=== PATIENT | female | born 1930 | race Caucasian/White ===

== ENCOUNTER → 2017-02-05 | Outpatient (REF) | payer MEDICARE, OTHER | LOC: M SFHCCLAY 13:51 | PROVIDERS: ATTEND Family Medicine | DX: E11.9 Type 2 diabetes mellitus without complications (principal) | CPT/HCPCS: 83036; G0463 ==

== ENCOUNTER 2017-11-09 12:51 | Emergency (ER) | payer MEDICARE, OTHER ==
[~2017-11-09] VITALS: Ht 167.6 cm; Wt 70.9 kg
[2017-11-09] MEDS ORDERED: LISI-538 PO (13:09)
[2017-11-09] MEDS ORDERED: TRUL10IN SC (13:09)
[2017-11-09] MEDS ORDERED: GLIM1TAB PO (13:09)
[2017-11-09] MEDS ORDERED: FLUV1TAB3 PO (13:09)
[2017-11-09] MEDS ORDERED: AMLO10TA2 PO (13:09)
[2017-11-09] MEDS ORDERED: VENL75CA47 PO (13:09)
[2017-11-09] MEDS ORDERED: CALC600T60 PO (13:09)
[2017-11-09] MEDS ORDERED: RANI150T PO (13:09)
--- NOTE | 2017-11-09 14:39 | REP ---
REASON: Pain status post fall last Saturday. FINDINGS: Three views of the right shoulder were performed. The acromioclavicular and glenohumeral relationships are within normal limits. There is no acute fracture or destructive osseous lesion. Signed by Neftaly Mukherjee DO 11/09/2017 02:59 P
--- NOTE | 2017-11-09 14:41 | REP ---
REASON: Trauma. COMPARISON: None. Mild to moderate diffuse periventricular lucencies are noted. The ventricles and sulci are within normal limits for the patient's age of 87 years. There are no extra-axial fluid collections. There is no shift of the midline structures. There is no evidence of an acute intracranial hemorrhagic or nonhemorrhagic event. IMPRESSION: Deep white matter ischemic changes. No evidence of acute disease. Signed by Neftaly Mukherjee DO 11/09/2017 02:59 P
--- NOTE | 2017-11-09 14:43 | REP ---
REASON: Pain. The bones are demineralized. There is anterior lipping at every thoracic level. There is moderate to severe disc space narrowing at every level particularly anteriorly involving the upper and mid thoracic levels. Vertebral body height and alignment is within normal limits. IMPRESSION: Chronic changes. Signed by Neftaly Mukherjee DO 11/09/2017 02:59 P
[2017-11-09 15:34] VITALS: BP 141/65
--- NOTE | 2017-11-10 06:50 | REP ---
Pain in the neck. There are marked chronic changes seen throughout the cervical spine with disc space narrowing and heavy anterior and posterior osteophytic ridging seen particularly C3-4 through C7-T1. Heavy degenerative uncovertebral joint and facet joint changes are present bilaterally at every level. Vertebral body height and alignment is within normal limits. There is no evidence of an acute fracture. There is no evidence of paraspinal soft tissue swelling. IMPRESSION: Marked chronic changes. Signed by Neftaly Mukherjee DO 11/10/2017 08:55 A
== END 2017-11-09 16:05 | disposition home or self-care (01) ==
LOC: M ED 12:51
DX: S16.1XXA Strain of muscle, fascia and tendon at neck level, initial encounter (principal); W01.198A Fall on same level from slipping, tripping and stumbling with subsequent striking against other object, initial encounter; Y92.099 Unspecified place in other non-institutional residence as the place of occurrence of the external cause; Y93.01 Activity, walking, marching and hiking; Y99.9 Unspecified external cause status

== ENCOUNTER 2017-11-12 14:38 | Observation (INO) | payer MEDICARE, OTHER ==
[~2017-11-12] VITALS: Ht 175.3 cm; Wt 70.9 kg
[~2017-11-12 14:38] MED LIST: AMLO10TA2 PO; CALC600T60 PO; FLUV1TAB3 PO; GLIM1TAB PO; LISI-538 PO; RANI150T PO; TRUL10IN SC; VENL75CA47 PO
[2017-11-12] MEDS ORDERED: FISH100049 PO (15:13)
[2017-11-12 15:33] LABS: BASO # 0.1 10^3/uL (0.0-0.2); BASO % 0.9 % (0.0-1.0); EOS # 0.1 10^3/uL (0.0-0.50); EOS % 0.9 % (0.0-3.0); IMMATURE GRANULOCYTE % 0.3 % (0-0); LYMPH # 0.8 10^3/uL (1.5-4.5); MEAN CORPUSCULAR HEMOGLOBIN 28.3 pg (27.0-33.0); MEAN CORPUSCULAR VOLUME 85.7 fl (80.0-96.0); MONO # 0.4 10^3/uL (0.0-0.8); NEUTROPHILS # 5.1 10^3/uL (1.8-7.7); NEUTROPHILS % 79.9 % (36.0-66.0); PLATELET COUNT, AUTOMATED 196 10^3/uL (150-450); RED CELL DISTRIBUTION WIDTH 13.1 % (11.5-14.5); WHITE BLOOD COUNT 6.4 10^3/uL (4.0-10.0)
[2017-11-12 15:39] LABS: INR 0.98
--- NOTE | 2017-11-12 15:49 | REP ---
Portable chest x-ray: Single view. History: Syncope. Comparison study: June 20, 2012. Findings: EKG monitoring electrodes overlie the chest. The lungs are well inflated and free of infiltrate. Pleural angles are sharp. Heart is not enlarged. Impression: No acute disease. Signed by Devin Smallwood MD 11/12/2017 04:04 P
[2017-11-12 15:56] LABS: ALBUMIN 3.1 GM/DL (3.2-5.2); ALBUMIN/GLOBULIN RATIO 0.86 (1.00-1.93); BILIRUBIN,DIRECT 0.2 MG/DL (0.0-0.2); BILIRUBIN,TOTAL 0.4 MG/DL (0.2-1.0); CALCIUM LEVEL 9.2 MG/DL (8.8-10.2); CREATININE FOR GFR 1.68 MG/DL (0.55-1.02); FREE T4 1.46 NG/DL (0.76-1.46); GLOMERULAR FILTRATION RATE 30.8 (>32); MAGNESIUM LEVEL 2.2 MG/DL (1.8-2.4); POTASSIUM SERUM 4.7 MEQ/L (3.5-5.1); TOTAL PROTEIN 6.7 GM/DL (6.4-8.2)
[2017-11-12] MEDS ORDERED: ACETAMINOPHEN TAB 650MG DOSE (2X325MG) PO PRN (17:30)
[2017-11-12] MEDS ORDERED: BISACODYL 5 MG TAB PO PRN (17:30)
[2017-11-12] MEDS ORDERED: NS 1,000 ML IV SCH (17:30)
[2017-11-12] MEDS ORDERED: ONDANSETRON 4MG/2ML VIAL (J2405) IV PRN (17:30)
[2017-11-12 20:55] VITALS: BP 157/70
--- NOTE | 2017-11-12 21:25 | ECGEPIP ---
Stationary ECG Study [facility] - ED Test Date: 2017-11-12 Pat Name: NAILA BETANCOURT Department: Room: - Gender: F Director Workers Compensation: MICHELL : 1930 Requested By: DIMA Gentile Order Number: [id number] Reading MD: Rose Marie Antoine Measurements Intervals [place] Rate: 80 P: 56 LA: 164 QRS: -3 QRSD: 85 T: 51 QT: 357 QTc: 413 Interpretive Statements SINUS RHYTHM INFERIOR MYOCARDIAL INFARCTION, ?AGE, CLINICAL CORRELATION NO PRIOR FOR COMPARISON Electronically Signed On 11-12-2017 21:25:14 EST by Rose Marie Antoine
[2017-11-12] MEDS: GLIMEPIRIDE 1 MG TABLET PO SCH (21:29)
[2017-11-12] MEDS: HEPARIN SOD (PORCINE) 5000 UNITS/ML VIAL SC SCH (21:29)
[2017-11-12] MEDS: VENLAFAXINE **XR** 75MG CAPSULE PO SCH (21:29)
--- NOTE | 2017-11-12 22:09 | HPE ---
DATE OF ADMISSION: 11/12/2017 PRIMARY CARE PHYSICIAN: Dr. Piotr Machado CHIEF COMPLAINT: "I passed out." HISTORY OF THE PRESENT ILLNESS: This is an 87-year-old female, history of diabetes, hypertension, neuropathy, history of urinary tract infection (UTIs), allergic rhinitis, lives in a small apartment at [facility], was brought in by ambulance due to a syncopal episode. Patient's daughter was at her residence today to check up on her and do her weekly medication check. The patient had recently been started on Trulicity since September 2017 with a 6-7 pound weight loss with decrease in appetite, increased fatigue and weakness. Glucose this morning was 177. While the daughter was at the residence, the patient was sitting at the table, she developed abdominal cramping, had gone to the bathroom by herself with a walker and while she was in the bathroom, the daughter could hear her having painful grunting. She asked if the patient was all right, and the patient responded "no, I feel very sweaty and hot, I don't feel well." As the daughter walked over to the bathroom, the daughter heard a thump, patient was found to be slumped over the handrail and had slid slightly down towards the floor with her waist and buttocks next to the handrail by the toilet. There was no head trauma. At that time, the patient appeared white and clammy for about 15 seconds. She came around with some confusion and able to speak, and had another syncopal episode while the daughter was in the bathroom with her and was out for about 3-4 minutes as the daughter pulled the Life Alert in the bathroom. When the patient came around, she vomited one time and had a diarrhea episode. Glucose via emergency medical services (EMS) was 309. She was brought into the emergency room for further evaluation. According to the daughter, the patient has been increasingly fatigued at home and has been losing weight, which is unintentional , with decrease in appetite. She has had no other changes in her medications aside from Trulicity in September 2017. In the emergency room, EKG showed sinus rhythm with old inferior Q waves. CBC, metabolic panel were remarkable for a creatinine of 1.68 with a baseline creatinine of about 1.3, 1.4. She otherwise denies any dysuria, urgency, frequency. Denies any fever, chills or flank pain. Describes the abdominal cramping as on and off just today, relieved when she had a bowel movement. No diarrhea. Denies any bright red blood per rectum or melena. Hospitalist service was asked to admit the patient for syncopal episode. Previous echo in 2011 showed an ejection fraction (EF) of 65%, borderline left ventricular hypertrophy (LVH) with impaired left ventricular diastolic relaxation, without any significant valvular dysfunction. PAST MEDICAL HISTORY: Type 2 diabetes. Hypertension. Gastroesophageal reflux disease. Osteoarthritis. MVP. Neuropathy of the feet. History of urinary tract infections (UTIs). Allergic rhinitis. ALLERGIES: MORPHINE, NEOSPORIN causing rash, CODEINE lip swelling, CORTISONE causing rash. SURGICAL HISTORY: Tonsillectomy in 1940. Adenoidectomy in 1940. Total hysterectomy 1989. Dilation and curettage and . Total right knee replacement 04/2001. Total left knee replacement 10/2002. Cataract surgery both eyes. FAMILY HISTORY: Father , age 98, stroke, age related. Mother , age 28, after delivery of blood clot. Two daughters alive. Emergency contact and Power of Assistant Refinery Operator is Marina Magana, phone number [phone]. Patient currently lives in a small apartment at [facility]. REVIEW OF SYSTEMS: Per history of the present illness. Patient also complains of neck pain, which is unchanged for the past 2 weeks. Twelve point system otherwise negative. SOCIAL HISTORY: No recreational drug use. No alcohol use. Retired, . PHYSICAL EXAMINATION: Vital Signs: Temperature 98.6, pulse 82, respiratory rate 18, blood pressure is 144/70, 98% on 2 liters nasal cannula. General: Patient is awake, alert, oriented times three, answers questions appropriately. Pupils round and reactive. Extraocular muscles are intact. Normocephalic, atraumatic. No jugular venous distention. No thyromegaly. No cervical lymphadenopathy. Patient has moist mucous membranes. Lungs are diminished but clear to auscultation. No wheezing, rales, or rhonchi. Heart: S1, S2, sinus rhythm. Abdomen: Soft, nontender, nondistended. Positive bowel sounds. No rebound or guarding. Extremities: No cyanosis, clubbing or any pitting edema. EKG: Sinus rhythm, inferior Q waves, most likely old. Ventricular rate of 80. LABORATORY DATA: White count 6.4, hemoglobin 11, hematocrit 34, platelet count 196. Sodium 138, potassium 4.7, chloride 98, bicarbonate 29, BUN 33, creatinine 1.68, baseline creatinine of 1.35 to 1.38, glucose of 291. Previous A1c January 2017 was 7.2. Magnesium 2.2, calcium 9.2, total bilirubin 0.4, direct bilirubin 0.2, AST 19, ALT 19, alkaline phosphatase 86, troponin less than 0.02, total CK 85, MB fraction 2.3, total protein 6.7, albumin 3.1, free T4 1.4, TSH of 2.07. UA is pending. ASSESSMENT AND PLAN: This is an 87-year-old female with a history of diabetes, hypertension, neuropathy, diastolic dysfunction, ejection fraction of 65%, mild pulmonary hypertension, no significant valvular dysfunction from previous echo 2011, chronic kidney disease stage III, reflux, osteoarthritis, MVP, history of urinary tract infections, allergic rhinitis, recently started on Trulicity in September with a 7-pound loss weight, decrease in appetite, presents to the emergency room with complaints of abdominal cramping, as well as syncopal episode while in the bathroom, times two episodes. EKG was unremarkable, showing sinus rhythm. Patient will be admitted for observation for the following issues: 1. Syncope. Check orthostatics, telemetry monitoring and echocardiogram to be repeated. Unlikely to have been a seizure episode. Check cardiac markers. Slight IV fluid hydration. Patient's glucose levels were adequate at 177 and 309 during these episodes, unlikely to have been due to hypoglycemia. CT of the head has no official reading. No other infectious etiology. Chest x-ray is negative. Patient denied any dysuria or urgency but will check a stat urinalysis due to complaints of abdominal pain. CT abdomen and pelvis is also pending. 2. Type 2 diabetes. Consistent carbohydrate diet. Check A1c. Insulin sliding scale. Resume home medications in the morning. 3. Hypertension. Continue on Norvasc and lisinopril. 4. Hyperlipidemia. Continue on fish oil. Check lipid profile in the morning and resume fluvastatin. 5. Deep vein thrombosis (DVT) prophylaxis with subcutaneous heparin. 6. Chronic kidney disease, currently at baseline. Patient's baseline creatinine is 1.3 to 1.8. Slight fluid hydration. Avoid nephrotoxins. 7. Deep vein thrombosis (DVT) prophylaxis with subcutaneous heparin. Health Care Proxy is patient's daughter, Marina Magana. Phone number [phone]. Patient has been signed out to Dr. Joni Amado at 5:27 p.m., 11/12/2017. [facility]
[2017-11-13] VITALS (8 sets, daily range): BP systolic 118–159; BP diastolic 55–72
[2017-11-13 00:52] LABS: SPECIFIC GRAVITY UR AUTO RFX 1.013 (1.002-1.035); SQUAM EPITHELIAL CELL UR AURFX 1 /HPF (0-6)
--- NOTE | 2017-11-13 07:04 | REP ---
CT of the abdomen pelvis without IV or bowel contrast for syncope and abdominal pain. There are no comparisons. The visualized lower lung smith demonstrate dependent atelectasis but are otherwise unremarkable. The unenhanced hepatic parenchyma is unremarkable. The unenhanced gallbladder, pancreas and spleen are unremarkable. The unenhanced adrenals, kidneys and abdominal aorta are unremarkable. There is no aortic aneurysm. No periaortic hematoma. There is no bowel distension or obstruction. Mesentery is unremarkable. Pelvis: There is no ascites or adenopathy. There are occasional diverticula in the sigmoid colon without diverticulitis. The bladder is unremarkable. The uterus is markedly atrophic. The adnexa are unremarkable. Impression: Diverticulosis without diverticulitis. Otherwise, essentially negative CT study of the abdomen and pelvis without IV or bowel. contrast. Signed by Tal Jamison MD 11/12/2017 04:59 P
--- NOTE | 2017-11-13 07:04 | REP ---
CT of the brain without IV contrast: Comparison is 2016. There is no hemorrhage. There is no edema, mass effect or midline shift. Cortical stripe is unremarkable. The ventricles and sulci are moderately dilated compatible with diffuse volume loss. This is unchanged. Impression: There is no hemorrhage, acute infarct or mass. There is moderate diffuse volume loss, unchanged. Signed by Tal Jamison MD 11/12/2017 04:38 P
[2017-11-13 08:20] LABS: BASO % 0.3 % (0.0-1.0); EOS % 0.3 % (0.0-3.0); IMMATURE GRANULOCYTE % 0.3 % (0-0); LYMPH % 8.6 % (24.0-44.0); MEAN CORPUSCULAR HEMOGLOBIN 28.5 pg (27.0-33.0); MEAN CORPUSCULAR HGB CONC 33.2 g/dl (32.0-36.5); MEAN CORPUSCULAR VOLUME 85.9 fl (80.0-96.0); MONO # 0.8 10^3/uL (0.0-0.8); NEUTROPHILS # 9.8 10^3/uL (1.8-7.7); NEUTROPHILS % 83.5 % (36.0-66.0); PLATELET COUNT, AUTOMATED 207 10^3/uL (150-450); RED CELL DISTRIBUTION WIDTH 13.1 % (11.5-14.5); WHITE BLOOD COUNT 11.7 10^3/uL (4.0-10.0)
[2017-11-13] MEDS: HEPARIN SOD (PORCINE) 5000 UNITS/ML VIAL SC SCH ×2 (08:34→21:45)
[2017-11-13] MEDS: LISINOPRIL 20 MG TAB PO SCH (08:34)
[2017-11-13] MEDS: amLODIPine 10 MG TAB PO SCH (08:34)
[2017-11-13 08:51] LABS: ALBUMIN 2.9 GM/DL (3.2-5.2); ALBUMIN/GLOBULIN RATIO 0.73 (1.00-1.93); ALKALINE PHOSPHATASE 81 U/L (45-117); ALT/SGPT 20 U/L (12-78); ANION GAP 7 MEQ/L (8-16); AST/SGOT 16 U/L (7-37); BILIRUBIN,TOTAL 0.5 MG/DL (0.2-1.0); BLOOD UREA NITROGEN 27 MG/DL (7-18); CALCIUM LEVEL 8.5 MG/DL (8.8-10.2); CARBON DIOXIDE LEVEL 27 MEQ/L (21-32); CHLORIDE LEVEL 102 MEQ/L (98-107); CHOLESTEROL LEVEL 114 MG/DL (<200); CREATININE FOR GFR 1.31 MG/DL (0.55-1.02); GLUCOSE, FASTING 185 MG/DL (83-110); MAGNESIUM LEVEL 1.9 MG/DL (1.8-2.4); POTASSIUM SERUM 4.4 MEQ/L (3.5-5.1); SODIUM LEVEL 136 MEQ/L (136-145); TOTAL PROTEIN 6.9 GM/DL (6.4-8.2); TRIGLYCERIDES LEVEL 93 MG/DL (<150)
[2017-11-13] MEDS: OMEGA-3 1050MG CAPSULE PO SCH (09:44)
--- NOTE | 2017-11-13 10:26 | IPNPDOC ---
Subjective Date Seen The patient was seen on 11/13/17. Subjective Chief Complaint/HPI The patient is a 87-year-old female admitted with a reason for visit of Syncope. Events since last encounter s/p syncopal episode at home after abdominal cramping. Also experienced diarrhea and vomiting. Denies further nausea and vomiting. Denies dizziness, lightheadedness. Admits to limiting food at home intentionally due to diabetes and wishing to lose weight. Constitutional: Denies: Chills, Fever, Night Sweats ENT: Denies: Head Aches, Ear Pain, Dysphagia Skin: Denies: Rash, Lesions, Breakdown Pulmonary: Denies: Dyspnea, Cough Cardiovascular: Denies: Chest Pain, Palpitations, Orthopnea, Paroxysmal Noc. Dyspnea, Lt Headedness Gastrointestinal: Denies: Nausea, Vomiting, Abdominal Pain, Diarrhea, Constipation Genitourinary: Denies: Dysuria, Frequency, Incontinence, Retention Neurological: Denies: Weakness, Numbness, Incoordination, Change in speech, Confusion, Seizures, Other Symptoms Psych: Reports: Mood Normal, Denies: Depression, Memory Issues Objective Physical Examination General Exam: Positive: Alert, No Acute Distress Eye Exam: Positive: PERRLA, Conjunctiva & lids normal, EOMI, Negative: Sclera icteric ENT Exam: Positive: Atraumatic, Mucous membr. moist/pink, Pharynx Normal Neck Exam: Positive: Supple, Negative: JVD, thyromegaly Chest Exam: Positive: Clear to auscultation, Normal air movement Heart Exam: Positive: Rate Normal, Regular Rhythm, Normal S1, Normal S2, Negative: Murmurs, Rubs Telemetry: Positive: No significant arrhythmia Abdomen Exam: Positive: Normal bowel sounds, Soft, Negative: Tenderness, Hepatospenomegaly Extremity Exam: Positive: Normal pulses, Negative: Clubbing, Cyanosis, Edema Skin Exam: Positive: Nl turgor and temperature, Negative: Rash, Breakdown Psych Exam: Positive: Mental status NL, Mood NL, Oriented x 3 Assessment /Plan Problems (1) Syncope Status: Acute Problem Text: ? vasovagal related to diarrhea/cramping. monitor telemetry. Echocardiogram ordered for today. (2) Cervical strain Status: Acute Problem Text: s/p fall from tripping on 10/10/17. CT cervical spine completed via ED visit: negative. Patient feels is resolving. (3) Diabetes mellitus Status: Chronic Problem Text: had some hypoglycemia. recent change in medications: Lantus, Metformin and Januvia held. Started on Trulicity recently. (4) HTN (hypertension) Status: Chronic Response to Treatment: Stable Problem Specific Plan: Monitor Clinically (5) Depression Status: Chronic Response to Treatment: Stable Problem Specific Plan: Monitor Clinically Plan/VTE VTE Prophylaxis Ordered?: Yes (heparin and TEDS) VS, I&O, 24H, Fishbone Vital Signs/I&O Vital Signs Date Time Temp Pulse Resp B/P (MAP) Pulse Ox O2 Delivery O2 Flow Rate FiO2 11/13/17 08:34 118/59 11/13/17 08:34 103 11/13/17 08:00 Room Air 11/13/17 08:00 99.7 18 98 I&O- Last 24 Hours up to 6 AM 11/14/17 06:00 Intake Total 720 ml Output Total 400 ml Balance 320 ml Laboratory Data 24H LABS Laboratory Tests 2 11/12/17 15:13: Immature Granulocyte % (Auto) 0.3H, White Blood Count 6.4, Red Blood Count 4.07 , Hemoglobin 11.5L, Hematocrit 34.9L, Mean Corpuscular Volume 85.7, Mean Corpuscular Hemoglobin 28.3, Mean Corpuscular Hemoglobin Concent 33.0, Red Cell Distribution Width 13.1, Platelet Count 196, Neutrophils (%) (Auto) 79.9H, Lymphocytes (%) (Auto) 12.0L, Monocytes (%) (Auto) 6.0H, Eosinophils (%) (Auto) 0.9, Basophils (%) (Auto) 0.9, Neutrophils # (Auto) 5.1, Lymphocytes # (Auto) 0.8L, Monocytes # (Auto) 0.4, Eosinophils # (Auto) 0.1, Basophils # (Auto) 0.1, Immature Granulocyte # (Auto) 0.0, Nucleated Red Blood Cells % (auto) 0.0, Prothrombin Time 13.0, Prothromb Time International Ratio 0.98, Anion Gap 11, Glomerular Filtration Rate 30.8L, Calcium Level 9.2, Magnesium Level 2.2, Aspartate Amino Transf (AST/SGOT) 19, Alanine Aminotransferase (ALT/SGPT) 19, Alkaline Phosphatase 86, Total Bilirubin 0.4, Direct Bilirubin 0.2, Total Creatine Kinase 85, Creatine Kinase MB 2.3, Creatine Kinase MB Relative Index 2.70, Troponin I < 0.02, Total Protein 6.7, Albumin 3.1L, Albumin/Globulin Ratio 0.86L, Thyroid Stimulating Hormone (TSH) 2.070, Free Thyroxine 1.46 11/12/17 23:56: Total Creatine Kinase 60, Creatine Kinase MB 1.5, Creatine Kinase MB Relative Index 2.50, Troponin I < 0.02 11/13/17 00:09: Urine Color YELLOW, Urine Appearance CLEAR, Urine pH 5.0, Urine Specific [place] 1.013, Urine Protein NEGATIVE, Urine Glucose (UA) 1+H, Urine Ketones TRACEH, Urine Blood NEGATIVE, Urine Nitrite NEGATIVE, Urine Bilirubin NEGATIVE, Urine Urobilinogen 0.2, Urine Leukocyte Esterase NEGATIVE, Urine WBC (Auto) 6H, Urine RBC (Auto) 1, Urine Hyaline Casts (Auto) 0, Urine Bacteria (Auto) NEGATIVE , Urine Squamous Epithelial Cells 1, Urine Sperm (Auto) 11/13/17 08:09: Immature Granulocyte % (Auto) 0.3H, White Blood Count 11.7H, Red Blood Count 3.89L, Hemoglobin 11.1L, Hematocrit 33.4L, Mean Corpuscular Volume 85.9, Mean Corpuscular Hemoglobin 28.5, Mean Corpuscular Hemoglobin Concent 33.2, Red Cell Distribution Width 13.1, Platelet Count 207, Neutrophils (%) (Auto) 83.5H, Lymphocytes (%) (Auto) 8.6L, Monocytes (%) (Auto) 7.0H, Eosinophils (%) (Auto) 0.3, Basophils (%) (Auto) 0.3, Neutrophils # (Auto) 9.8H, Lymphocytes # (Auto) 1.0L, Monocytes # (Auto) 0.8, Eosinophils # (Auto) 0.0, Basophils # (Auto) 0.0, Immature Granulocyte # (Auto) 0.0, Nucleated Red Blood Cells % (auto) 0.0, Anion Gap 7L, Glomerular Filtration Rate 41.0, Calcium Level 8.5L, Magnesium Level 1.9, Aspartate Amino Transf (AST/SGOT) 16, Alanine Aminotransferase (ALT/ SGPT) 20, Alkaline Phosphatase 81, Total Bilirubin 0.5, Total Creatine Kinase 49 , Creatine Kinase MB 1.4, Creatine Kinase MB Relative Index 2.85, Troponin I < 0.02, Total Protein 6.9, Albumin 2.9L, Albumin/Globulin Ratio 0.73L, Thyroid Stimulating Hormone (TSH) 0.921, Estimated Mean Plasma Glucose 186H, Hemoglobin A1c 8.1, Blood Urea Nitrogen 27H, Creatinine 1.31H, Sodium Level 136, Potassium Level 4.4, Chloride Level 102, Carbon Dioxide Level 27, Triglycerides Level 93, LDL Cholesterol 36.4, Total Cholesterol 114, Non-HDL Cholesterol (LDL + VLDL) 55 , Total HDL Cholesterol 59, Cholesterol/HDL Ratio 1.932 CBC/BMP Laboratory Tests 11/12/17 15:13 Red Blood Count 4.07, Mean Corpuscular Volume 85.7, Mean Corpuscular Hemoglobin 28.3, Mean Corpuscular Hemoglobin Concent 33.0, Red Cell Distribution Width 13.1 , Neutrophils (%) (Auto) 79.9 H, Lymphocytes (%) (Auto) 12.0 L, Monocytes (%) ( Auto) 6.0 H, Eosinophils (%) (Auto) 0.9, Basophils (%) (Auto) 0.9, Neutrophils # (Auto) 5.1, Lymphocytes # (Auto) 0.8 L, Monocytes # (Auto) 0.4, Eosinophils # (Auto) 0.1, Basophils # (Auto) 0.1 11/13/17 08:09 Red Blood Count 3.89 L, Mean Corpuscular Volume 85.9, Mean Corpuscular Hemoglobin 28.5, Mean Corpuscular Hemoglobin Concent 33.2, Red Cell Distribution Width 13.1, Neutrophils (%) (Auto) 83.5 H, Lymphocytes (%) (Auto) 8.6 L, Monocytes (%) (Auto) 7.0 H, Eosinophils (%) (Auto) 0.3, Basophils (%) ( Auto) 0.3, Neutrophils # (Auto) 9.8 H, Lymphocytes # (Auto) 1.0 L, Monocytes # ( Auto) 0.8, Eosinophils # (Auto) 0.0, Basophils # (Auto) 0.0, Calcium Level 8.5 L , Aspartate Amino Transf (AST/SGOT) 16, Alanine Aminotransferase (ALT/SGPT) 20, Total Creatine Kinase 49, Alkaline Phosphatase 81, Total Bilirubin 0.5, Triglycerides Level 93, LDL Cholesterol 36.4, Total Protein 6.9, Albumin 2.9 L Emily Butt Nov 13, 2017 10:26
[2017-11-13] MEDS: GLIMEPIRIDE 1 MG TABLET PO SCH (18:40)
[2017-11-13] MEDS: VENLAFAXINE **XR** 75MG CAPSULE PO SCH (21:45)
[2017-11-14] VITALS: BP_SYST 121; BP_SYST 126; BP_DIAS 58; BP_DIAS 59; BP_DIAS 60
[2017-11-14 04:00] VITALS: BP 129/62
[2017-11-14 06:46] LABS: BASO % 0.4 % (0.0-1.0); EOS # 0.1 10^3/uL (0.0-0.50); EOS % 1.5 % (0.0-3.0); IMMATURE GRANULOCYTE % 0.4 % (0-0); LYMPH # 1.3 10^3/uL (1.5-4.5); LYMPH % 15.7 % (24.0-44.0); MEAN CORPUSCULAR HEMOGLOBIN 28.2 pg (27.0-33.0); MEAN CORPUSCULAR HGB CONC 32.9 g/dl (32.0-36.5); MEAN CORPUSCULAR VOLUME 85.5 fl (80.0-96.0); MONO # 0.6 10^3/uL (0.0-0.8); MONO % 6.7 % (0.0-5.0); NEUTROPHILS # 6.5 10^3/uL (1.8-7.7); NEUTROPHILS % 75.3 % (36.0-66.0); PLATELET COUNT, AUTOMATED 182 10^3/uL (150-450); RED CELL DISTRIBUTION WIDTH 12.9 % (11.5-14.5); WHITE BLOOD COUNT 8.6 10^3/uL (4.0-10.0)
[2017-11-14 07:37] VITALS: BP 100/52
[2017-11-14] MEDS: LISINOPRIL 20 MG TAB PO SCH (09:22)
[2017-11-14] MEDS: OMEGA-3 1050MG CAPSULE PO SCH (09:22)
[2017-11-14] MEDS: HEPARIN SOD (PORCINE) 5000 UNITS/ML VIAL SC SCH (09:22)
[2017-11-14] MEDS: amLODIPine 10 MG TAB PO SCH (09:22)
--- NOTE | 2017-11-14 09:33 | DSES ---
DATE OF ADMISSION: 11/12/2017 DATE OF DISCHARGE: PRINCIPAL DIAGNOSIS: Vasovagal syncope. HISTORY: Payal Mendoza was admitted after having a syncopal episode while voiding in the bathroom. She was found to be pale and clammy and was brought to the emergency room and admitted for syncope. For details, see history and physical from admission. HOSPITAL COURSE: The patient was in the emergency room (ER) for the duration of her hospitalization waiting for a bed. She was on telemetry during this interval and she should no rhythm disturbances. She has no orthostatic drop in her blood pressures and when last checked they were 121/59 with a pulse 79 supine; 126/60 with a pulse of 82 standing. She feels back to her usual self and wants to go home. I met with the daughter yesterday. She had concerns about the patient being able to live at home with memory problems and the fact that she has been getting more and more fatigued as the months go by and I asked her to address all these as an outpatient. This is really not something we are going to fix during this hospitalization. The patient had CT of the abdomen and pelvis that did not show anything significant. She had a CT of the head that showed atrophy, otherwise unremarkable. Lab work was unrevealing. Sodium 136, potassium 4.4, BUN 27, creatinine 1.3, glucose 185. White count 8.6, hemoglobin 10.5 and platelets 182. DISPOSITION: The patient is discharged home in improved and stable condition. Followup with Dr. Machado in a week. Her medicines are unchanged from admission, amlodipine 10 mg daily, calcium, fish oil, fluvastatin 80 mg daily, glimepiride 0.5 mg daily, lisinopril 20 mg daily, ranitidine 150 mg daily, Trulicity 0.75 mg subcutaneous weekly, Venlafaxine ER 75 mg daily. She is on a DASH diet. Activity as tolerated. Followup with Dr. Machado in a week.
[2017-11-14 11:07] LABS: ALBUMIN 2.6 GM/DL (3.2-5.2); ALBUMIN/GLOBULIN RATIO 0.68 (1.00-1.93); BILIRUBIN,TOTAL 0.3 MG/DL (0.2-1.0); CALCIUM LEVEL 8.5 MG/DL (8.8-10.2); CREATININE FOR GFR 1.12 MG/DL (0.55-1.02); GLOMERULAR FILTRATION RATE 49.1 (>32); POTASSIUM SERUM 4.2 MEQ/L (3.5-5.1); TOTAL PROTEIN 6.4 GM/DL (6.4-8.2)
--- NOTE | 2017-11-14 23:13 | ECHO ---
DATE OF PROCEDURE: 11/14/2017 REFERRING PHYSICIAN: Dr. Stephanie Adkins INDICATION: Syncope. HEIGHT: 275 cm WEIGHT: 71 kg 2D MEASUREMENTS: Aortic root: 2.8 cm Left atrium: 3.5 cm Ventricular septum: 1.11 cm Posterior wall: 0.91 cm Left ventricle diastole: 3.5 cm Aortic annulus: 2.0 cm Inferior vena cava: 1.1 cm DOPPLER MEASUREMENTS: Aortic valve velocity: 191 cm/s LVOT velocity: 127 cm/s LVOT VTI: 26.4 cm Mitral E velocity: 99.4 cm/s Mitral A velocity: 157 cm/s Mitral deceleration time: 486 ms Very mild tricuspid regurgitation. Estimated right ventricle systolic pressure: 37 mmHg assuming a right atrial pressure of 5 mmHg Pulmonary artery systolic pressure: 34 mmHg by pulmonary acceleration time method. MITRAL ANNULAR TISSUE DOPPLER: E prime septal: 6.2 cm/s E prime lateral: 7.6 cm/s DESCRIPTION: Rhythm was sinus. Image quality was adequate. No pericardial effusion. This was a 2D, M-mode, color flow Doppler and pulse wave Doppler examination and included mitral annular tissue Doppler. CONCLUSIONS: 1. Normal left ventricle size and wall thickness. Normal regional LV wall motion and wall thickening. Mildly hyperdynamic LV systolic function with left ventricular ejection fraction (LVEF) 75% by visual estimate. 2. Grade 1 LV diastolic dysfunction (impaired relaxation filling pattern). 3. Mild aortic valve sclerosis of a 3-cusp aortic valve. No aortic regurgitation. 4. Moderate mitral annular calcification. No mitral stenosis or regurgitation. 5. Suggestive of mild elevation of pulmonary artery systolic pressure and estimated right ventricle systolic pressure.
== END 2017-11-14 21:02 | disposition home or self-care (01) ==
LOC: M ED 14:38 → EDBD 14:38 → M ED INP 17:27
PROVIDERS: ADMIT General Practice; ATTEND Family Medicine
DX: R55 Syncope and collapse (principal); R19.7 Diarrhea, unspecified; R10.9 Unspecified abdominal pain; S16.1XXD Strain of muscle, fascia and tendon at neck level, subsequent encounter; W01.0XXD Fall on same level from slipping, tripping and stumbling without subsequent striking against object, subsequent encounter; Y92.89 Other specified places as the place of occurrence of the external cause; E11.21 Type 2 diabetes mellitus with diabetic nephropathy; E11.22 Type 2 diabetes mellitus with diabetic chronic kidney disease; I13.0 Hypertensive heart and chronic kidney disease with heart failure and stage 1 through stage 4 chronic kidney disease, or unspecified chronic kidney disease; N18.3 Chronic kidney disease, stage 3 (moderate); I50.30 Unspecified diastolic (congestive) heart failure; F32.9 Major depressive disorder, single episode, unspecified; J30.9 Allergic rhinitis, unspecified; Z87.440 Personal history of urinary (tract) infections; K21.9 Gastro-esophageal reflux disease without esophagitis; M19.90 Unspecified osteoarthritis, unspecified site; I34.1 Nonrheumatic mitral (valve) prolapse; I27.20 Pulmonary hypertension, unspecified; Z88.5 Allergy status to narcotic agent; Z88.3 Allergy status to other anti-infective agents; Z88.8 Allergy status to other drugs, medicaments and biological substances; Z79.899 Other long term (current) drug therapy
CPT/HCPCS: 36415; 70450; 71010; 74176; 80048; 80053; 80061; 80076; 81001; 82550; 82553; 83036; 83735; 84439; 84443; 84484; 85025; 85610; 93005; 93041; 93306; 94760; 96360; 96361; 96372; 97161; 99285; G0378

== ENCOUNTER → 2017-11-18 | Outpatient (REF) | payer MEDICARE, OTHER ==
[~2017-11-18] MED LIST changes: +FISH100049 PO
[2017-11-18 17:47] LABS: PERCENT SATURATION 24.7 % (13.2-45.0)
[2017-11-18 17:57] LABS: FOLATE 21.6 NG/ML (>5.4)
== END ==
LOC: M SFHCCLAY 11:28
PROVIDERS: ATTEND Family Medicine
DX: D64.9 Anemia, unspecified (principal)

== ENCOUNTER → 2018-02-25 | Outpatient (REF) | payer MEDICARE, OTHER ==
[2018-02-25 21:54] LABS: APPEARANCE, URINE TURBID (CLEAR); BACTERIA, URINE AUTO 1+ (NEGATIVE); BILIRUBIN, URINE AUTO NEGATIVE (NEGATIVE); BLOOD, URINE BLOOD 1+ (NEGATIVE); COLOR, URINE YELLOW (YELLOW); GLUCOSE, URINE (UA) AUTO 1+ mg/dL (NEGATIVE); KETONE, URINE AUTO NEGATIVE (NEGATIVE); LEUKOCYTE ESTERASE, URINE AUTO 3+ (NEGATIVE); NITRITE, URINE AUTO NEGATIVE (NEGATIVE); PROTEIN, URINE AUTO 2+ mg/dL (NEGATIVE); RBC, URINE AUTO 10 /HPF (0-3); SPECIFIC GRAVITY URINE AUTO 1.015 (1.002-1.035); SQUAMOUS EPITHELIAL CELL UR AU 0 /HPF (0-6); TRANSITIONAL EPITHELIAL AUTO 1 /HPF; UROBILINOGEN, URINE AUTO 0.2 mg/dL (0.0-2.0); WBC, URINE AUTO TNTC /HPF (0-3)
== END ==
LOC: M LAB REF 21:13
DX: N39.0 Urinary tract infection, site not specified (principal)
CPT/HCPCS: 81001

== ENCOUNTER → 2018-07-14 | Outpatient (CLI) | payer MEDICARE ==
[2018-07-14 16:09] LABS: ALBUMIN 3.7 GM/DL (3.2-5.2); ALBUMIN/GLOBULIN RATIO 1.23 (1.00-1.93); ALKALINE PHOSPHATASE 75 U/L (45-117); ALT/SGPT 19 U/L (12-78); ANION GAP 10 MEQ/L (8-16); AST/SGOT 13 U/L (7-37); BILIRUBIN,TOTAL 0.4 MG/DL (0.2-1.0); BLOOD UREA NITROGEN 26 MG/DL (7-18); CALCIUM LEVEL 9.3 MG/DL (8.8-10.2); CARBON DIOXIDE LEVEL 30 MEQ/L (21-32); CHLORIDE LEVEL 104 MEQ/L (98-107); CHOLESTEROL LEVEL 180 MG/DL (<200); CHOLESTEROL RISK RATIO 1.978 (<5); GLOMERULAR FILTRATION RATE 41.3 (>32); GLUCOSE, FASTING 137 MG/DL (70-100); HDL CHOLESTEROL 91 MG/DL (>40); LDL CHOLESTEROL 71.6 MG/DL (<100); NON-HDL-C 89 MG/DL; POTASSIUM SERUM 4.5 MEQ/L (3.5-5.1); SODIUM LEVEL 144 MEQ/L (136-145); TOTAL PROTEIN 6.7 GM/DL (6.4-8.2); TRIGLYCERIDES LEVEL 87 MG/DL (<150)
[2018-07-14 16:40] LABS: CREATININE, URINE 76.7 MG/DL; MALB URINE SIEMENS 41.3 MG/L; MAU/CREAT RATIO 53.8 MCG/MG (0.0-30.0)
[2018-07-14 16:49] LABS: ESTIMATED AVERAGE GLUCOSE 203 MG/DL (60-110); HEMOGLOBIN A1c 8.7 %
== END ==
LOC: M SMT 08:48
DX: I12.9 Hypertensive chronic kidney disease with stage 1 through stage 4 chronic kidney disease, or unspecified chronic kidney disease (principal); E11.22 Type 2 diabetes mellitus with diabetic chronic kidney disease; N18.3 Chronic kidney disease, stage 3 (moderate); E11.42 Type 2 diabetes mellitus with diabetic polyneuropathy
CPT/HCPCS: 84443

== ENCOUNTER → 2018-08-15 | Outpatient (CLI) | payer MEDICARE ==
[2018-08-15 13:18] LABS: HEMOGLOBIN 11.3 g/dl (12.0-15.5); MEAN CORPUSCULAR HEMOGLOBIN 28.6 pg (27.0-33.0); MEAN CORPUSCULAR HGB CONC 32.3 g/dl (32.0-36.5); MEAN CORPUSCULAR VOLUME 88.6 fl (80.0-96.0); PLATELET COUNT, AUTOMATED 179 10^3/uL (150-450); RED BLOOD COUNT 3.95 10^6/uL (4.00-5.40); RED CELL DISTRIBUTION WIDTH 12.6 % (11.5-14.5)
[2018-08-15 14:02] LABS: ALBUMIN 3.6 GM/DL (3.2-5.2); ALBUMIN/GLOBULIN RATIO 1.13 (1.00-1.93); ALKALINE PHOSPHATASE 80 U/L (45-117); ALT/SGPT 19 U/L (12-78); ANION GAP 5 MEQ/L (8-16); AST/SGOT 13 U/L (7-37); BILIRUBIN,TOTAL 0.5 MG/DL (0.2-1.0); BLOOD UREA NITROGEN 30 MG/DL (7-18); CALCIUM LEVEL 9.1 MG/DL (8.8-10.2); CARBON DIOXIDE LEVEL 32 MEQ/L (21-32); CHLORIDE LEVEL 105 MEQ/L (98-107); CREATININE FOR GFR 1.39 MG/DL (0.55-1.30); GLOMERULAR FILTRATION RATE 38.2 (>32); GLUCOSE, FASTING 148 MG/DL (70-100); POTASSIUM SERUM 4.7 MEQ/L (3.5-5.1); SODIUM LEVEL 142 MEQ/L (136-145); TOTAL PROTEIN 6.8 GM/DL (6.4-8.2)
== END ==
LOC: M SMT 09:53
DX: R53.82 Chronic fatigue, unspecified (principal); R40.0 Somnolence
CPT/HCPCS: 84443

== ENCOUNTER → 2018-08-20 | Outpatient (CLI) | payer MEDICARE | LOC: M RAD 17:18 | DX: R40.0 Somnolence (principal); R53.83 Other fatigue; Z53.8 Procedure and treatment not carried out for other reasons ==

== ENCOUNTER 2018-08-29 05:39 | Inpatient (IN) | payer MEDICARE ==
[2018-08-29] MEDS: ACETAMINOPHEN TAB 650MG DOSE (2X325MG) PO (07:15)
[2018-08-29 07:25] LABS: BASO % 0.4 % (0.0-1.0); EOS # 0.2 10^3/uL (0.0-0.50); EOS % 3.3 % (0.0-3.0); HEMATOCRIT 32.9 % (36.0-47.0); HEMOGLOBIN 10.9 g/dl (12.0-15.5); IMMATURE GRANULOCYTE % 0.4 % (0-3.0); LYMPH # 1.2 10^3/uL (1.5-4.5); LYMPH % 21.7 % (24.0-44.0); MEAN CORPUSCULAR HEMOGLOBIN 28.9 pg (27.0-33.0); MEAN CORPUSCULAR HGB CONC 33.1 g/dl (32.0-36.5); MEAN CORPUSCULAR VOLUME 87.3 fl (80.0-96.0); MONO # 0.4 10^3/uL (0.0-0.8); MONO % 7.7 % (0.0-5.0); NEUTROPHILS # 3.7 10^3/uL (1.8-7.7); NEUTROPHILS % 66.5 % (36.0-66.0); PLATELET COUNT, AUTOMATED 150 10^3/uL (150-450); RED BLOOD COUNT 3.77 10^6/uL (4.00-5.40); RED CELL DISTRIBUTION WIDTH 12.6 % (11.5-14.5); WHITE BLOOD COUNT 5.5 10^3/uL (4.0-10.0)
[2018-08-29 07:31] LABS: BEDSIDE GLUCOSE 179 MG/DL (83-110)
[2018-08-29 07:51] LABS: ANION GAP 8 MEQ/L (8-16); BLOOD UREA NITROGEN 22 MG/DL (7-18); CALCIUM LEVEL 8.8 MG/DL (8.8-10.2); CARBON DIOXIDE LEVEL 28 MEQ/L (21-32); CHLORIDE LEVEL 106 MEQ/L (98-107); CREATININE FOR GFR 0.98 MG/DL (0.55-1.30); GLOMERULAR FILTRATION RATE 57.2 (>32); GLUCOSE, FASTING 167 MG/DL (70-100); POTASSIUM SERUM 4.1 MEQ/L (3.5-5.1); SODIUM LEVEL 142 MEQ/L (136-145)
[2018-08-29 07:52] LABS: CPK CREATINE PHOSPHOKINASE 82 U/L (26-192); MAGNESIUM LEVEL 1.9 MG/DL (1.8-2.4); MB/CK RELATIVE INDEX 2.93 (< OR =4); TROPONIN I 0.02 NG/ML (< 0.10)
[2018-08-29] MEDS: LISINOPRIL 20 MG TAB PO (08:21)
[2018-08-29] MEDS: amLODIPine 5 MG TAB PO (08:21)
[2018-08-29] MEDS: raNITIdine SYRUP 150 MG/10 ML UDC PO ×2 (09:00→20:25)
[2018-08-29] MEDS ORDERED: amLODIPine 10 MG TAB PO (09:00)
[2018-08-29] MEDS: LEVEMIR (INSULIN DETEMIR) 1 UNITS/0.01ML SC (10:50)
[2018-08-29] MEDS: GLIMEPIRIDE 1 MG TABLET PO (11:44)
[2018-08-29] MEDS ORDERED: GLUCAGON FOR INJ 1 MG VIAL (J1610) SC (11:45)
[2018-08-29] MEDS ORDERED: DEXTROSE 50% 50 ML SYRINGE IV (11:45)
[2018-08-29] MEDS ORDERED: GLUCOSE 4 GM CHEW TABLET PO (11:45)
[2018-08-29] MEDS ORDERED: ACETAMINOPHEN 500 MG TAB PO (11:45)
[2018-08-29] MEDS: HumaLOG INSULIN (NovoLOG) PER UNIT SC ×3 (12:00→20:26)
[2018-08-29 17:14] LABS: BEDSIDE GLUCOSE 169 MG/DL (83-110)
[2018-08-29 20:23] LABS: BEDSIDE GLUCOSE 126 MG/DL (83-110)
[2018-08-29] MEDS: VENLAFAXINE **XR** 75MG CAPSULE PO (20:25)
[2018-08-29] MEDS: ATORVASTATIN 20 MG TAB PO (20:25)
[2018-08-30] MEDS ORDERED: SLF 3 ML SYR IV (01:00)
[2018-08-30 05:09] LABS: BASO % 0.5 % (0.0-1.0); EOS # 0.1 10^3/uL (0.0-0.50); EOS % 1.9 % (0.0-3.0); HEMATOCRIT 32.7 % (36.0-47.0); HEMOGLOBIN 10.7 g/dl (12.0-15.5); IMMATURE GRANULOCYTE % 0.3 % (0-3.0); LYMPH # 1.5 10^3/uL (1.5-4.5); MEAN CORPUSCULAR HEMOGLOBIN 28.8 pg (27.0-33.0); MEAN CORPUSCULAR HGB CONC 32.7 g/dl (32.0-36.5); MEAN CORPUSCULAR VOLUME 87.9 fl (80.0-96.0); MONO # 0.5 10^3/uL (0.0-0.8); MONO % 7.7 % (0.0-5.0); NEUTROPHILS # 3.7 10^3/uL (1.8-7.7); NEUTROPHILS % 63.6 % (36.0-66.0); PLATELET COUNT, AUTOMATED 149 10^3/uL (150-450); RED BLOOD COUNT 3.72 10^6/uL (4.00-5.40); RED CELL DISTRIBUTION WIDTH 12.4 % (11.5-14.5); WHITE BLOOD COUNT 5.9 10^3/uL (4.0-10.0)
[2018-08-30 05:38] LABS: ALBUMIN 3.3 GM/DL (3.2-5.2); ALBUMIN/GLOBULIN RATIO 1.18 (1.00-1.93); ALKALINE PHOSPHATASE 68 U/L (45-117); ALT/SGPT 16 U/L (12-78); ANION GAP 7 MEQ/L (8-16); AST/SGOT 14 U/L (7-37); BILIRUBIN,TOTAL 0.5 MG/DL (0.2-1.0); BLOOD UREA NITROGEN 22 MG/DL (7-18); CALCIUM LEVEL 8.8 MG/DL (8.8-10.2); CARBON DIOXIDE LEVEL 29 MEQ/L (21-32); CHLORIDE LEVEL 107 MEQ/L (98-107); CREATININE FOR GFR 0.95 MG/DL (0.55-1.30); GLOMERULAR FILTRATION RATE 59.2 (>32); GLUCOSE, FASTING 112 MG/DL (70-100); POTASSIUM SERUM 3.8 MEQ/L (3.5-5.1); SODIUM LEVEL 143 MEQ/L (136-145); TOTAL PROTEIN 6.1 GM/DL (6.4-8.2)
[2018-08-30] MEDS: SLF 3 ML SYR IV ×3 (05:38→21:16)
[2018-08-30] MEDS: HumaLOG INSULIN (NovoLOG) PER UNIT SC ×4 (08:13→21:16)
[2018-08-30] MEDS: amLODIPine 10 MG TAB PO (09:53)
[2018-08-30] MEDS: raNITIdine SYRUP 150 MG/10 ML UDC PO ×2 (09:53→21:15)
[2018-08-30] MEDS: LISINOPRIL 20 MG TAB PO (09:53)
[2018-08-30] MEDS: INFLUENZA VIRUS VACCINE HIGH DOSE 0.5 ML SYRINGE (90662) IM (10:23)
[2018-08-30 11:35] LABS: BEDSIDE GLUCOSE 242 MG/DL (83-110)
[2018-08-30 16:41] LABS: BEDSIDE GLUCOSE 122 MG/DL (83-110)
[2018-08-30 20:12] LABS: BEDSIDE GLUCOSE 262 MG/DL (83-110)
[2018-08-30] MEDS: ATORVASTATIN 20 MG TAB PO (21:15)
[2018-08-30] MEDS: VENLAFAXINE **XR** 75MG CAPSULE PO (21:15)
[2018-08-31] MEDS: SLF 3 ML SYR IV ×3 (05:17→21:24)
[2018-08-31 05:25] LABS: BASO % 0.5 % (0.0-1.0); EOS # 0.1 10^3/uL (0.0-0.50); EOS % 2.3 % (0.0-3.0); HEMATOCRIT 31.8 % (36.0-47.0); HEMOGLOBIN 10.5 g/dl (12.0-15.5); IMMATURE GRANULOCYTE % 0.4 % (0-3.0); LYMPH # 1.3 10^3/uL (1.5-4.5); LYMPH % 24.2 % (24.0-44.0); MEAN CORPUSCULAR VOLUME 87.8 fl (80.0-96.0); MONO # 0.6 10^3/uL (0.0-0.8); MONO % 10.8 % (0.0-5.0); NEUTROPHILS # 3.4 10^3/uL (1.8-7.7); NEUTROPHILS % 61.8 % (36.0-66.0); PLATELET COUNT, AUTOMATED 144 10^3/uL (150-450); RED BLOOD COUNT 3.62 10^6/uL (4.00-5.40); RED CELL DISTRIBUTION WIDTH 12.5 % (11.5-14.5); WHITE BLOOD COUNT 5.5 10^3/uL (4.0-10.0)
[2018-08-31 05:54] LABS: ALBUMIN 3.3 GM/DL (3.2-5.2); ALKALINE PHOSPHATASE 73 U/L (45-117); ALT/SGPT 18 U/L (12-78); ANION GAP 8 MEQ/L (8-16); AST/SGOT 14 U/L (7-37); BILIRUBIN,TOTAL 0.6 MG/DL (0.2-1.0); BLOOD UREA NITROGEN 26 MG/DL (7-18); CALCIUM LEVEL 8.7 MG/DL (8.8-10.2); CARBON DIOXIDE LEVEL 28 MEQ/L (21-32); CHLORIDE LEVEL 107 MEQ/L (98-107); CREATININE FOR GFR 1.15 MG/DL (0.55-1.30); GLOMERULAR FILTRATION RATE 47.5 (>32); GLUCOSE, FASTING 169 MG/DL (70-100); POTASSIUM SERUM 3.9 MEQ/L (3.5-5.1); SODIUM LEVEL 143 MEQ/L (136-145); TOTAL PROTEIN 6.3 GM/DL (6.4-8.2)
[2018-08-31] MEDS: raNITIdine SYRUP 150 MG/10 ML UDC PO ×2 (08:25→21:24)
[2018-08-31] MEDS: HumaLOG INSULIN (NovoLOG) PER UNIT SC ×4 (08:25→21:00)
[2018-08-31] MEDS: amLODIPine 10 MG TAB PO (08:26)
[2018-08-31] MEDS: LISINOPRIL 20 MG TAB PO (08:27)
[2018-08-31 11:40] LABS: BEDSIDE GLUCOSE 222 MG/DL (83-110)
[2018-08-31 16:52] LABS: BEDSIDE GLUCOSE 158 MG/DL (83-110)
[2018-08-31 20:39] LABS: BEDSIDE GLUCOSE 131 MG/DL (83-110)
[2018-08-31] MEDS: ATORVASTATIN 20 MG TAB PO (21:24)
[2018-08-31] MEDS: VENLAFAXINE **XR** 75MG CAPSULE PO (21:24)
[2018-09-01 05:34] LABS: EOS # 0.1 10^3/uL (0.0-0.50); EOS % 3.3 % (0.0-3.0); HEMOGLOBIN 10.4 g/dl (12.0-15.5); LYMPH # 1.4 10^3/uL (1.5-4.5); LYMPH % 34.2 % (24.0-44.0); MEAN CORPUSCULAR HGB CONC 33.5 g/dl (32.0-36.5); MEAN CORPUSCULAR VOLUME 86.4 fl (80.0-96.0); MONO # 0.4 10^3/uL (0.0-0.8); MONO % 10.1 % (0.0-5.0); NEUTROPHILS % 51.4 % (36.0-66.0); PLATELET COUNT, AUTOMATED 145 10^3/uL (150-450); RED BLOOD COUNT 3.59 10^6/uL (4.00-5.40); RED CELL DISTRIBUTION WIDTH 12.4 % (11.5-14.5)
[2018-09-01 05:53] LABS: ALKALINE PHOSPHATASE 66 U/L (45-117); ALT/SGPT 17 U/L (12-78); ANION GAP 6 MEQ/L (8-16); AST/SGOT 15 U/L (7-37); BILIRUBIN,TOTAL 0.5 MG/DL (0.2-1.0); BLOOD UREA NITROGEN 20 MG/DL (7-18); CALCIUM LEVEL 8.4 MG/DL (8.8-10.2); CARBON DIOXIDE LEVEL 29 MEQ/L (21-32); CHLORIDE LEVEL 107 MEQ/L (98-107); CREATININE FOR GFR 1.17 MG/DL (0.55-1.30); GLOMERULAR FILTRATION RATE 46.6 (>32); GLUCOSE, FASTING 187 MG/DL (70-100); POTASSIUM SERUM 4.3 MEQ/L (3.5-5.1); SODIUM LEVEL 142 MEQ/L (136-145)
[2018-09-01] MEDS: SLF 3 ML SYR IV ×3 (06:31→20:37)
[2018-09-01] MEDS: LISINOPRIL 20 MG TAB PO (08:30)
[2018-09-01] MEDS: raNITIdine SYRUP 150 MG/10 ML UDC PO ×2 (08:30→20:37)
[2018-09-01] MEDS: amLODIPine 10 MG TAB PO (08:30)
[2018-09-01] MEDS: HumaLOG INSULIN (NovoLOG) PER UNIT SC ×4 (08:31→20:37)
[2018-09-01 11:22] LABS: BEDSIDE GLUCOSE 222 MG/DL (83-110)
[2018-09-01 16:26] LABS: BEDSIDE GLUCOSE 209 MG/DL (83-110)
[2018-09-01 20:35] LABS: BEDSIDE GLUCOSE 157 MG/DL (83-110)
[2018-09-01] MEDS: ATORVASTATIN 20 MG TAB PO (20:37)
[2018-09-01] MEDS: VENLAFAXINE **XR** 75MG CAPSULE PO (20:37)
[2018-09-02] MEDS: SLF 3 ML SYR IV (05:19)
[2018-09-02 06:07] LABS: BASO % 0.7 % (0.0-1.0); EOS # 0.2 10^3/uL (0.0-0.50); EOS % 3.5 % (0.0-3.0); HEMATOCRIT 30.3 % (36.0-47.0); HEMOGLOBIN 10.1 g/dl (12.0-15.5); LYMPH # 1.2 10^3/uL (1.5-4.5); LYMPH % 28.1 % (24.0-44.0); MEAN CORPUSCULAR HEMOGLOBIN 28.7 pg (27.0-33.0); MEAN CORPUSCULAR HGB CONC 33.3 g/dl (32.0-36.5); MEAN CORPUSCULAR VOLUME 86.1 fl (80.0-96.0); MONO # 0.4 10^3/uL (0.0-0.8); MONO % 10.4 % (0.0-5.0); NEUTROPHILS # 2.4 10^3/uL (1.8-7.7); NEUTROPHILS % 57.3 % (36.0-66.0); PLATELET COUNT, AUTOMATED 136 10^3/uL (150-450); RED BLOOD COUNT 3.52 10^6/uL (4.00-5.40); RED CELL DISTRIBUTION WIDTH 12.6 % (11.5-14.5); WHITE BLOOD COUNT 4.2 10^3/uL (4.0-10.0)
[2018-09-02 06:35] LABS: ALBUMIN 3.2 GM/DL (3.2-5.2); ALBUMIN/GLOBULIN RATIO 1.28 (1.00-1.93); ALKALINE PHOSPHATASE 70 U/L (45-117); ALT/SGPT 17 U/L (12-78); ANION GAP 6 MEQ/L (8-16); AST/SGOT 13 U/L (7-37); BILIRUBIN,TOTAL 0.5 MG/DL (0.2-1.0); BLOOD UREA NITROGEN 23 MG/DL (7-18); CALCIUM LEVEL 8.8 MG/DL (8.8-10.2); CARBON DIOXIDE LEVEL 31 MEQ/L (21-32); CHLORIDE LEVEL 106 MEQ/L (98-107); CREATININE FOR GFR 1.02 MG/DL (0.55-1.30); GLOMERULAR FILTRATION RATE 54.6 (>32); GLUCOSE, FASTING 230 MG/DL (70-100); POTASSIUM SERUM 4.7 MEQ/L (3.5-5.1); SODIUM LEVEL 143 MEQ/L (136-145); TOTAL PROTEIN 5.7 GM/DL (6.4-8.2)
[2018-09-02] MEDS: raNITIdine SYRUP 150 MG/10 ML UDC PO (07:55)
[2018-09-02] MEDS: amLODIPine 10 MG TAB PO (07:58)
[2018-09-02] MEDS: LISINOPRIL 20 MG TAB PO (07:58)
[2018-09-02] MEDS: HumaLOG INSULIN (NovoLOG) PER UNIT SC ×2 (07:59→12:30)
[2018-09-02 11:41] LABS: BEDSIDE GLUCOSE 148 MG/DL (83-110)
== END 2018-09-02 13:16 | disposition home health service (06) | DRG 87 ==
LOC: M ED 05:39 → M ED INP 11:45 → M PCU 15:58
DX: S06.6X0A Traumatic subarachnoid hemorrhage without loss of consciousness, initial encounter (principal); S02.31XA Fracture of orbital floor, right side, initial encounter for closed fracture; R55 Syncope and collapse; Z66 Do not resuscitate; H05.231 Hemorrhage of right orbit; I12.9 Hypertensive chronic kidney disease with stage 1 through stage 4 chronic kidney disease, or unspecified chronic kidney disease; K21.9 Gastro-esophageal reflux disease without esophagitis; F32.9 Major depressive disorder, single episode, unspecified; M19.90 Unspecified osteoarthritis, unspecified site; E11.22 Type 2 diabetes mellitus with diabetic chronic kidney disease; E11.40 Type 2 diabetes mellitus with diabetic neuropathy, unspecified; N18.3 Chronic kidney disease, stage 3 (moderate); W01.10XA Fall on same level from slipping, tripping and stumbling with subsequent striking against unspecified object, initial encounter; Y92.129 Unspecified place in nursing home as the place of occurrence of the external cause; Y93.01 Activity, walking, marching and hiking; Z79.4 Long term (current) use of insulin; Z79.899 Other long term (current) drug therapy; Z87.440 Personal history of urinary (tract) infections; Z90.710 Acquired absence of both cervix and uterus; Z96.653 Presence of artificial knee joint, bilateral; Z98.41 Cataract extraction status, right eye; Z98.42 Cataract extraction status, left eye